=== PATIENT | female | born 1985 | race Caucasian/White ===

== ENCOUNTER 2019-08-05 12:32 | Emergency (ER) | payer OTHER ==
[~2019-08-05] VITALS: Ht 165.1 cm; Wt 113.4 kg
--- NOTE | 2019-08-05 12:35 | NUR ---
PT AMBULATED TO BED 11.
[2019-08-05 12:40] VITALS: BP 110/62
[2019-08-05] MEDS ORDERED: KETOROLAC 30 MG/ML VIAL IM ONE (13:05)
[2019-08-05] MEDS ORDERED: DIAZEPAM 5 MG TAB PO ONE (13:05)
--- NOTE | 2019-08-05 13:25 | NUR ---
PT GIVEN A URINE CUP FOR URINE SAMPLE.
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
--- NOTE | 2019-08-05 13:30 | NUR ---
PT TAKEN TO XRAY VIA WHEELCHAIR
--- NOTE | 2019-08-05 13:41 | NUR ---
PT BACK FROM XR, WHEELED TO BED 11.
[2019-08-05 14:37] VITALS: BP 108/59
--- NOTE | 2019-08-05 14:37 | NUR ---
Patient discharged with v/s stable. Written and verbal after care instructions given and explained. Patient alert, oriented and verbalized understanding of instructions. Ambulatory with steady gait. All questions addressed prior to discharge. ID band removed. Patient advised to follow up with PMD. Rx of Lidoderm, Naprosyn, and Valium given. Patient educated on indication of medication including possible reaction and side effects. Opportunity to ask questions provided and answered.
== END 2019-08-05 14:37 | disposition home or self-care (01) ==
LOC: MED 12:32
DX: S60.012A Contusion of left thumb without damage to nail, initial encounter (principal); R07.89 Other chest pain; M54.2 Cervicalgia; M25.571 Pain in right ankle and joints of right foot; V49.60XA Unspecified car occupant injured in collision with unspecified motor vehicles in traffic accident, initial encounter; Y93.89 Activity, other specified; Y92.89 Other specified places as the place of occurrence of the external cause; Y99.8 Other external cause status
CPT/HCPCS: 71046; 73140; 81025; 96372; 99284; J1885

== ENCOUNTER 2019-08-07 | Emergency (ER) | payer OTHER ==
[~2019-08-07] VITALS: Ht 165.1 cm; Wt 113.4 kg
[2019-08-07 00:29] VITALS: BP 97/74
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
[2019-08-07 01:20] VITALS: BP 112/65
--- NOTE | 2019-08-07 01:20 | NUR ---
Patient discharged with v/s stable. Written and verbal after care instructions about rectal bleeding given and explained. Patient verbalized understanding. Ambulatory with steady gait. All questions addressed prior to discharge. Advised to follow up with PMD.
== END 2019-08-07 01:20 | disposition home or self-care (01) ==
LOC: MED
DX: K62.5 Hemorrhage of anus and rectum (principal)
CPT/HCPCS: 99281

== ENCOUNTER 2021-09-26 15:21 | Inpatient (IN) | payer OTHER ==
[~2021-09-26] VITALS: Ht 165.1 cm; Wt 92.1 kg
[2021-09-26 15:29] VITALS: BP 132/86
[2021-09-26] MEDS ORDERED: KETOROLAC 30 MG/ML VIAL IM ONE (16:00)
[2021-09-26 16:16] LABS: BASOPHILS # (AUTO) 0.1 K/uL (0.00-0.22); EOSINOPHILS # (AUTO) 0.1 K/uL (0-0.4); EOSINOPHILS % (AUTO) 0.9 % (0.0-4.0); HEMATOCRIT 41.8 % (36-48); HEMOGLOBIN 13.6 g/dL (12.0-16.0); LYMPHOCYTES # (AUTO) 1.7 K/uL (2.5-16.5); LYMPHOCYTES % (AUTO) 26.6 % (20.5-51.1); MEAN CORPUSCULAR HEMOGLOBIN 29 pg (27-31); MEAN CORPUSCULAR HGB CONC 33 g/dL (33-37); MONOCYTES # (AUTO) 0.4 K/uL (0.8-1.0); MONOCYTES % (AUTO) 6.7 % (1.7-9.3); NEUTROPHILS # (AUTO) 4.2 K/uL (1.8-7.7); NEUTROPHILS % (AUTO) 64.8 % (42.2-75.2); PLATELET COUNT (AUTO) 217 K/uL (140-450); RED BLOOD CELL COUNT(AUTO) 4.64 MIL/uL (4.20-5.40); RED CELL DISTRIBUTION WIDTH 13.5 % (11.6-13.7); WHITE BLOOD COUNT (AUTO) 6.5 K/uL (4.8-10.8)
--- NOTE | 2021-09-26 16:40 | NUR ---
PATIENT PRESENTS TO ED WITH ABDOMINAL PAIN X 5 DAYS, DENIES DYSURIA, DENIES N/V/D. SKIN IS PINK/WARM/DRY; AAOX4 WITH EVEN AND STEADY GAIT; LUNGS CLEAR BL; HR EVEN AND REGULAR; PT DENIES ANY FEVER, CP, SOB, OR COUGH AT THIS TIME; PATIENT STATES PAIN OF 10/10 AT THIS TIME; VSS; PATIENT POSITIONED FOR COMFORT; HOB ELEVATED; BEDRAILS UP X2; BED DOWN. ER MD MADE AWARE OF PT STATUS.
[2021-09-26 16:57] LABS: ALBUMIN 3.8 g/dL (3.4-5.0); ANION GAP 13.9 (8-16); CARBON DIOXIDE 23.7 mmol/L (21-32); CREATININE 0.8 mg/dL (0.6-1.3); POTASSIUM 3.6 mmol/L (3.5-5.1); TOTAL BILIRUBIN 4.8 mg/dL (0.0-1.0)
--- NOTE | 2021-09-26 17:16 | NUR ---
PROVIDER AT BEDSIDE, UPDATING PATIENT ACCORDINGLY.
--- NOTE | 2021-09-26 17:29 | NUR ---
TONY specimen obtained, handed to CPT Yisel at bedside.
[2021-09-26] MEDS ORDERED: ONDANSETRON 4 MG/2 ML VIAL IVP ONE (17:50)
[2021-09-26] MEDS ORDERED: PIPERACILLIN/TAZOBACTAM 3.375 GM in DEXTROSE 5% 50 ML IV ONE (17:50)
[2021-09-26] MEDS ORDERED: PIPERACILLIN/TAZOBACTAM 3.375 GM VIAL IV ONE (17:55)
[2021-09-26] MEDS ORDERED: POTASSIUM CHLORIDE 10 MEQ TABER PO PRN (19:15)
[2021-09-26] MEDS ORDERED: MORPHINE SULFATE 4 MG/ML SYR IVP PRN (19:15)
[2021-09-26] MEDS ORDERED: ACETAMINOPHEN 325 MG TAB PO PRN (19:15)
[2021-09-26] MEDS ORDERED: HYDROcodone/APAP 5/325 MG 1 TAB TAB PO PRN (19:15)
[2021-09-26] MEDS ORDERED: ONDANSETRON 4 MG/2 ML VIAL IVP PRN (19:15)
[2021-09-26] MEDS ORDERED: MAGNESIUM OXIDE 400 MG TAB PO PRN (19:15)
--- NOTE | 2021-09-26 19:15 | NUR ---
RECIEVED REPORT FROM NANCY LAWRENCE
[2021-09-26] MEDS ORDERED: cefTRIAXone 1,000 MG VIAL ONE (20:59)
[2021-09-26] MEDS: NACL 0.9% 1,000 ML IV SCH (21:16)
[2021-09-26] MEDS: metroNIDAZOLE 500 MG/NS PREMIX 100 ML IV SCH (22:24)
--- NOTE | 2021-09-26 23:00 | NUR ---
pt is resting comfortably in bed, talking to family on the phone. even and unlabored respirations.
--- NOTE | 2021-09-27 05:10 | NUR ---
SEED PACKER AT BEDSIDE
[2021-09-27] MEDS: metroNIDAZOLE 500 MG/NS PREMIX 100 ML IV SCH ×3 (05:20→21:41)
[2021-09-27 06:26] LABS: BASOPHILS # (AUTO) 0.1 K/uL (0.00-0.22); BASOPHILS % (AUTO) 0.8 % (0.0-2.0); EOSINOPHILS # (AUTO) 0.1 K/uL (0-0.4); EOSINOPHILS % (AUTO) 1.7 % (0.0-4.0); HEMATOCRIT 37.7 % (36-48); HEMOGLOBIN 12.4 g/dL (12.0-16.0); LYMPHOCYTES # (AUTO) 2.2 K/uL (2.5-16.5); LYMPHOCYTES % (AUTO) 29.3 % (20.5-51.1); MEAN CORPUSCULAR HEMOGLOBIN 29 pg (27-31); MEAN CORPUSCULAR HGB CONC 33 g/dL (33-37); MEAN CORPUSCULAR VOLUME 89.6 fL (80-94); MONOCYTES # (AUTO) 0.5 K/uL (0.8-1.0); MONOCYTES % (AUTO) 7.1 % (1.7-9.3); NEUTROPHILS # (AUTO) 4.5 K/uL (1.8-7.7); NEUTROPHILS % (AUTO) 61.1 % (42.2-75.2); PLATELET COUNT (AUTO) 189 K/uL (140-450); RED BLOOD CELL COUNT(AUTO) 4.21 MIL/uL (4.20-5.40); RED CELL DISTRIBUTION WIDTH 13.7 % (11.6-13.7); WHITE BLOOD COUNT (AUTO) 7.3 K/uL (4.8-10.8)
[2021-09-27 06:52] LABS: ANION GAP 12.7 (8-16); CARBON DIOXIDE 25.5 mmol/L (21-32); POTASSIUM 4.2 mmol/L (3.5-5.1)
--- NOTE | 2021-09-27 07:15 | NUR ---
REPORT TAKEN FROM ESTELA CRUZ
--- NOTE | 2021-09-27 07:18 | NUR ---
GAVE TRANSFER OF CARE REPORT TO NBA NOE
--- NOTE | 2021-09-27 07:56 | NUR ---
PT IS ASLEEP. RESP EVEN AND UNLABORED. SIDE RAILS UP X2 BED AT LOWEST POSITION
--- NOTE | 2021-09-27 08:00 | NUR ---
36YR OLD FEMALE C/0 ABD PAIN X5 DAYS. PT IS ADMITTED TO [facility] ON A HOLD UNTIL BED AVAIL. PT IS A&OX4. RESP EVEN AND UNLABORED. 18G IV CATH L AC. PT RESTING WITH SIDE RAILS UPX2 BED AT LOWEST POSITION
[2021-09-27 10:01] LABS: ALBUMIN 3.3 g/dL (3.4-5.0); ANION GAP 15.6 (8-16); CARBON DIOXIDE 23.6 mmol/L (21-32); POTASSIUM 4.2 mmol/L (3.5-5.1); TOTAL BILIRUBIN 3.3 mg/dL (0.0-1.0)
--- NOTE | 2021-09-27 10:31 | NUR ---
URINE PREG DONE FOR CT. NEG TEST RESULT
--- NOTE | 2021-09-27 10:36 | NUR ---
CT HERE FOR PATIENT
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
--- NOTE | 2021-09-27 10:50 | NUR ---
PT BACK FROM CT. DR LEIGH AT BEDSIDE
--- NOTE | 2021-09-27 10:51 | NUR ---
SPOKE WITH DR LEIGH ON PATIENT REQUESTING ICE CHIPS. NPO EXCEPT WITH MEDS, MAY HAVE ICE CHIPS
--- NOTE | 2021-09-27 11:27 | NUR ---
PT RESTING IN BED. ON BEDSIDE MONITOR RESP EVEN AND UNLABORED. PT SPOKE WITH DR LEIGH AT BEDSIDE.
--- NOTE | 2021-09-27 13:56 | NUR ---
SURGEON AT BEDSIDE. PT IS A&OX4. RESP EVEN AND UNLABORED. PT ASKING QUESTIONS REGARDING POSS SURGERY. PT STATES NO PAIN BUT IS HAVING DISCOMFORT. DENIES N/V.
[2021-09-27] MEDS: NACL 0.9% 1,000 ML IV SCH ×2 (14:51→22:02)
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
--- NOTE | 2021-09-27 21:19 | NUR ---
REMAINS IN NUCLEAR MEDICINE
--- NOTE | 2021-09-27 21:25 | NUR ---
RETURNED FROM [employer].
[2021-09-27] MEDS ORDERED: cefTRIAXone 1,000 MG VIAL ONE (21:34)
--- NOTE | 2021-09-28 02:00 | NUR ---
resting in bed with eyes closed. respirations regular and unlabored
--- NOTE | 2021-09-28 06:00 | NUR ---
AWAKE, VOICES NO COMPLAINTS. HAS BEEN RESTING COMFORTABLY
[2021-09-28] MEDS: metroNIDAZOLE 500 MG/NS PREMIX 100 ML IV SCH (06:07)
--- NOTE | 2021-09-28 08:00 | NUR ---
PT IS A MEDSURG HOLD. DR LEIGH SPOKE WITH PT ABOUT DC HOME TODAY. PT IS A&OX4. UP AT ZARA. STEADY GAIT. DENIES PAIN OR N/V. DENIES CP OR SOB. PT ON BEDSIDE MONITOR. [place]IDING DC PAPERWORK. HOB ELEVATED. SIDE RAILS UPX1 . BED AT LOWEST POSITION NKDA NO MED HX TO NOTE
[2021-09-28] MEDS: NACL 0.9% 1,000 ML IV SCH (08:55)
[2021-09-28] MEDS ORDERED: TRAM50TA1 PO (09:25)
[2021-09-28] MEDS ORDERED: ONDA-188 PO (09:26)
[2021-09-28 10:15] VITALS: BP 113/54
--- NOTE | 2021-09-28 10:42 | NUR ---
Patient discharged with v/s stable. Patient was a MedSurg Hold. Dr Easton has discharged patient.Written and verbal after care instructions given and explained. Patient verbalized understanding. IV cath has been removed. Ambulatory with steady gait. All questions addressed prior to discharge. Advised to follow up with PMD.
--- NOTE | 2021-09-28 10:44 | NUR ---
PATIENT HAS BEEN SCREENED AND CATEGORIZED LOW NUTRITION RISK. PATIENT WILL BE SEEN WITHIN 7 DAYS OF ADMISSION. 09/27/21-10/03/[address]
== END 2021-09-28 10:42 | disposition home or self-care (01) ==
LOC: MED 15:21 → MMU 19:15 → MTU 09-28 06:24
PROVIDERS: ADMIT Student in an Organized Health Care Education/Training Program; ATTEND Student in an Organized Health Care Education/Training Program
DX: K80.20 Calculus of gallbladder without cholecystitis without obstruction (principal); F10.10 Alcohol abuse, uncomplicated; Y90.9 Presence of alcohol in blood, level not specified; Z20.822 Contact with and (suspected) exposure to COVID-19; R74.01 Elevation of levels of liver transaminase levels; Z98.891 History of uterine scar from previous surgery
CPT/HCPCS: 36415; 76705; 78445; 80048; 80053; 83690; 85025; 87040; 96365; 96372; 96375; 99285; J0696; J1644; J1885; J2405; J2543; J3490; J7060; Q0092